=== PATIENT | male | born 1995 | race Two or more races ===

== ENCOUNTER 2019-07-07 00:06 | Emergency (ER) | payer SELFPAY ==
[~2019-07-07] VITALS: Ht 167.6 cm; Wt 56.2 kg
[2019-07-07 00:24] VITALS: BP 141/83
--- NOTE | 2019-07-07 00:24 | NUR ---
BIBS W/ FRIEND. C/O BEING NON VERBAL AFTER SMOKING MARIJUANA. -SOB, +N/V, HEADACHE SINCE 9:45PM
--- NOTE | 2019-07-07 02:37 | NUR ---
Patient does not wish to proceed with medical care recommended by Dr. Garnett. Patient given information related to possible complications, up to and including , which could occur as a result of leaving the hospital at this time. Patient verbalizes understanding of risks involved due to leaving against medical advice. Patient has signed AMA form.
== END 2019-07-07 03:01 | disposition left against medical advice (07) ==
LOC: ER 00:06
DX: F41.9 Anxiety disorder, unspecified (principal); F12.10 Cannabis abuse, uncomplicated; Z76.5 Malingerer [conscious simulation]

== ENCOUNTER 2019-07-07 14:14 | Emergency (ER) | payer OTHER ==
[~2019-07-07] VITALS: Ht 170.2 cm; Wt 58.1 kg
--- NOTE | 2019-07-07 14:40 | NUR ---
PT BIBFRIEND, BECAME NON-VERBAL S/P MARIJUANA USE LAST NIGHT, WAS HERE THIS MORNING. PT AAOX4, VSS, BREATHING EVEN AND UNLABORED W/ NAD. PT CONNECTED TO THE MONITOR
[2019-07-07 15:48] LABS: BASOPHILS % (AUTO) 0.2 % (0.0-2.0); EOSINOPHILS % (AUTO) 1.1 % (0.0-6.0); HEMATOCRIT 45 % (39-51); HEMOGLOBIN 15.3 g/dL (13.5-17.5); LYMPHOCYTES # (AUTO) 2.8 /CMM (0.8-4.8); LYMPHOCYTES % (AUTO) 31.6 % (20.0-44.0); MEAN CORPUSCULAR HGB CONC 34 g/dl (31.0-36.0); MEAN CORPUSCULAR VOLUME 90 fL (80-96); MONOCYTES # (AUTO) 0.8 /CMM (0.1-1.30); MONOCYTES % (AUTO) 9.7 % (2.0-12.0); NEUTROPHILS % (AUTO) 57.4 % (43.0-81.0); PLATELET COUNT (AUTO) 243 /CMM (150-450); RED BLOOD CELL COUNT(AUTO) 5.02 MIL/uL (4.5-6.0); WHITE BLOOD COUNT (AUTO) 8.7 K/uL (4.3-11.0)
[2019-07-07 15:55] LABS: CALCIUM, SERUM 8.8 mg/dL (8.5-10.1); CREATININE 0.9 mg/dL (0.6-1.3)
[2019-07-07] MEDS ORDERED: KETOROLAC TROMETHAMINE INJ 30 MG/ML VIAL IV ONE (17:00)
[2019-07-07] MEDS ORDERED: METOCLOPRAMIDE HCL 10 MG/2 ML VIAL IV ONE (17:00)
[2019-07-07] MEDS ORDERED: diphenhydrAMINE HCL 50 MG/ML VIAL IV ONE (17:00)
[2019-07-07] MEDS ORDERED: IV NS 0.9% 1,000 ML BAG IV ONE (17:00)
[2019-07-07] MEDS ORDERED: diphenhydrAMINE HCL 50 MG/ML VIAL ONE (17:03)
[2019-07-07] MEDS ORDERED: METOCLOPRAMIDE HCL 10 MG/2 ML VIAL ONE (17:04)
[2019-07-07] MEDS ORDERED: KETOROLAC TROMETHAMINE INJ 30 MG/ML VIAL ONE (17:04)
--- NOTE | 2019-07-07 18:08 | NUR ---
Patient discharged to home in stable condition. Written and verbal after care instructions given. Patient verbalizes understanding of instruction.
[2019-07-07 18:09] VITALS: BP 128/78
== END 2019-07-07 18:10 | disposition home or self-care (01) ==
LOC: ER 14:23
DX: F60.3 Borderline personality disorder (principal); G43.909 Migraine, unspecified, not intractable, without status migrainosus; F41.9 Anxiety disorder, unspecified; F12.90 Cannabis use, unspecified, uncomplicated
CPT/HCPCS: 36415; 70450; 80048; 85025; 96374; 96375; 99284; J1200; J1885; J2765; J7030